=== PATIENT | female | born 1990 | race Asian ===

== ENCOUNTER → 2022-05-26 | Outpatient (CLI) | payer OTHER ==
[2022-05-26 18:10] LABS: Source, Urine Voided
[2022-05-26 19:32] LABS: BASOPHILS ABSOLUTE AUTO 0.08 K/mm3 (0.00-0.23); BASOPHILS PERCENT AUTO 1 % (0-2); EOSINOPHILS ABSOLUTE AUTO 0.29 K/mm3 (0.00-0.68); EOSINOPHILS PERCENT AUTO 3 % (0-6); Hematocrit 39.1 % (33.0-51.0); IMMATURE GRAN ABSOLUTE AUTO 0.03 K/mm3 (0.00-0.10); IMMATURE GRAN PERCENT AUTO 0 % (0-1); LYMPHOCYTES ABSOLUTE AUTO 2.69 K/mm3 (0.84-5.20); LYMPHOCYTES PERCENT AUTO 25 % (21-46); MONOCYTES ABSOLUTE AUTO 0.86 K/mm3 (0.16-1.47); MONOCYTES PERCENT AUTO 8 % (4-13); Mean Corpuscular HGB 30.7 pg (26.0-34.0); Mean Corpuscular HGB Conc 35.8 g/dL (31.5-36.5); Mean Corpuscular Volume 86 fL (80-100); Mean Platelet Volume 10.1 fL (9.1-12.4); NEUTROPHILS ABSOLUTE AUTO 7.05 K/mm3 (1.96-9.15); NEUTROPHILS PERCENT AUTO 64 % (41-73); Platelet Count 351 K/mm3 (150-400); RDW Coefficient Variation 12.1 % (11.7-14.2); RDW Standard Deviation 38.2 fL (35.1-46.3); Red Blood Cell Count 4.56 M/mm3 (3.80-5.20)
[2022-05-26 19:34] LABS: Appearance, Urine Clear (Clear); Bilirubin, Urine Neg (Neg); Blood, Urine Neg (Neg); Glucose Qualitative, Urine Neg (Neg); Ketones, Urine Neg (Neg); Leukocyte Esterase, Urine 1+ (Neg); Nitrite, Urine Neg (Neg); Protein, Urine Neg (Neg); Urobilinogen, Urine NORM (Normal)
[2022-05-26 19:46] LABS: Color, Urine Pale Yellow (P-Yellow)
[2022-05-26 19:47] LABS: Bacteria Mod /hpf; Red Blood Cells, Urine 0-2 /hpf (0-2); Squamous Epithelial Cells Few /hpf (Few)
[2022-05-28 07:09] LABS: HBSAG SCREEN Negative (Negative); HIV AB/P24 AG SCREEN Non Reactive (Non Reactive)
== END | disposition home or self-care (01) ==
LOC: LAB SHORT 15:55
PROVIDERS: Registered Nurse Community Health
DX: Z34.91 Encounter for supervision of normal pregnancy, unspecified, first trimester (principal)
CPT/HCPCS: 80055; 81001; 84443; 87086; 87389

== ENCOUNTER → 2022-06-08 | Outpatient (CLI) | payer OTHER ==
[2022-06-10 00:07] LABS: CHLAMYDIA TRACHOMATIS, NAA Negative (Negative)
== END | disposition home or self-care (01) ==
LOC: LAB SHORT 12:59
PROVIDERS: Registered Nurse Community Health
DX: Z34.91 Encounter for supervision of normal pregnancy, unspecified, first trimester (principal)
CPT/HCPCS: 87491; 87591

== ENCOUNTER → 2022-09-07 | Outpatient (CLI) | payer OTHER ==
[2022-09-07 20:53] LABS: Amylase, Blood 89 U/L (25-115)
== END | disposition home or self-care (01) ==
LOC: LAB 16:40 → LAB SHORT 16:40
PROVIDERS: Registered Nurse Community Health
DX: R10.11 Right upper quadrant pain (principal)
CPT/HCPCS: 82150; 83690

== ENCOUNTER → 2022-10-07 | Outpatient (CLI) | payer OTHER ==
[2022-10-08 12:58] LABS: Hematocrit 35.3 % (33.0-51.0); Hemoglobin 11.7 g/dL (11.5-16.0)
== END | disposition home or self-care (01) ==
LOC: LAB SHORT 12:07
PROVIDERS: Registered Nurse Community Health
DX: Z34.03 Encounter for supervision of normal first pregnancy, third trimester (principal)
CPT/HCPCS: 82950; 85014; 85018

== ENCOUNTER → 2022-11-30 | Outpatient (CLI) | payer OTHER | END | disposition home or self-care (01) | LOC: LAB SHORT 15:20 → LAB 15:20 | DX: Z34.03 Encounter for supervision of normal first pregnancy, third trimester (principal) | CPT/HCPCS: 87081; 87150 ==

== ENCOUNTER 2022-12-20 18:54 | Inpatient (IN) | payer OTHER ==
[~2022-12-20] VITALS: Ht 149.9 cm; Wt 74.5 kg
[2022-12-20 19:06] VITALS: BP 122/71
[2022-12-20] MEDS ORDERED: PRENATAL TABLE1 EAC2 PO (19:46)
[2022-12-20 20:03] VITALS: BP 119/60
[2022-12-20 20:03] LABS: BASOPHILS ABSOLUTE AUTO 0.03 K/mm3 (0.00-0.23); BASOPHILS PERCENT AUTO 0 % (0-2); EOSINOPHILS ABSOLUTE AUTO 0.07 K/mm3 (0.00-0.68); EOSINOPHILS PERCENT AUTO 1 % (0-6); Hematocrit 37.3 % (33.0-51.0); Hemoglobin 13.6 g/dL (11.5-16.0); IMMATURE GRAN ABSOLUTE AUTO 0.09 K/mm3 (0.00-0.10); IMMATURE GRAN PERCENT AUTO 1 % (0-1); LYMPHOCYTES PERCENT AUTO 15 % (21-46); MONOCYTES ABSOLUTE AUTO 0.89 K/mm3 (0.16-1.47); MONOCYTES PERCENT AUTO 9 % (4-13); Mean Corpuscular HGB 31.6 pg (26.0-34.0); Mean Corpuscular HGB Conc 36.5 g/dL (31.5-36.5); Mean Corpuscular Volume 87 fL (80-100); Mean Platelet Volume 10.4 fL (9.1-12.4); NEUTROPHILS ABSOLUTE AUTO 7.48 K/mm3 (1.96-9.15); NEUTROPHILS PERCENT AUTO 74 % (41-73); Platelet Count 278 K/mm3 (150-400); RDW Coefficient Variation 12.8 % (11.7-14.2); RDW Standard Deviation 39.9 fL (35.1-46.3); Red Blood Cell Count 4.31 M/mm3 (3.80-5.20); White Blood Cell Count 10.06 K/mm3 (4.00-11.30)
[2022-12-20 20:08] LABS: Albumin, Blood 2.6 g/dL (3.4-5.0); Albumin/Globulin Ratio 0.7 (0.8-1.8); Bilirubin, Total 0.2 mg/dL (0.1-1.0); Bun/Creatinine Ratio 21.4 (12.0-20.0); Calcium, Blood 8.9 mg/dL (8.5-10.1); Creatinine, Blood 0.56 mg/dL (0.40-1.00); Globulin, Blood 3.8 g/dL (2.2-4.0); Potassium, Blood 3.9 mmol/L (3.5-5.5); Total Protein, Blood 6.4 g/dL (6.4-8.2)
[2022-12-20 20:19] VITALS: BP 110/59
[2022-12-20 20:34] VITALS: BP 111/61
[2022-12-20 20:51] VITALS: BP 108/55
[2022-12-20 22:13] LABS: Creatinine, Urine Random 69.3 mg/dL (27.00-270.00); Protein, Urine Random 49.3 mg/dL (0.0-11.9); Protein/Creat Ratio, Ur Random 0.7
[2022-12-21] VITALS (47 sets, daily range): BP systolic 90–136; BP diastolic 43–74
--- NOTE | 2022-12-21 00:52 | NUR ---
DISCUSSED IGNITION SOURCES WITH PATIENT AND SPOUSE. BOTH DENY HAVING LIGHTERS, CIGARETTES, OR VAPE PENS. BOTH ARE AWARE THAT THESE ARE NOT ALLOWED IN THE HOSPITAL.
--- NOTE | 2022-12-21 21:10 | NUR ---
12/21/222109 Angus Pradhan CORD BLOOD AND CORD ON ICE GIVEN TO BABY RN
[2022-12-21 21:16] LABS: PCO2 Cord - Arterial 52 mmHg (40-50); pH Cord - Arterial 7.25 (7.28-7.35)
[2022-12-21 21:19] LABS: PCO2 Cord - Venous 47.3 mmHg (40-50); PO2 Cord - Venous 15.2 mmHg (28-32); pH Umbilical Cord - Venous 7.29 (7.26-7.35)
[2022-12-22] VITALS (12 sets, daily range): BP systolic 92–128; BP diastolic 50–67
[2022-12-22 00:31] LABS: Source, Urine Foley catheter
[2022-12-22 00:38] LABS: Bilirubin, Urine Neg (Neg); Blood, Urine 5+ (Neg); Glucose Qualitative, Urine Neg (Neg); Ketones, Urine 3+ (Neg); Leukocyte Esterase, Urine 1+ (Neg); Nitrite, Urine Neg (Neg); Protein, Urine 2+ (Neg); Specific Gravity, Urine 1.015 (1.003-1.022); Urobilinogen, Urine NORM (Normal)
[2022-12-22 01:00] LABS: Appearance, Urine Hazy (Clear); Color, Urine Yellow (P-Yellow)
[2022-12-22 01:01] LABS: Bacteria Mod /hpf; Red Blood Cells, Urine 25-50 /hpf (0-2); Squamous Epithelial Cells Rare /hpf (Few); White Blood Cells, Urine 0-2 /hpf (0-5)
[2022-12-22 05:47] LABS: BASOPHILS ABSOLUTE AUTO 0.04 K/mm3 (0.00-0.23); BASOPHILS PERCENT AUTO 0 % (0-2); EOSINOPHILS ABSOLUTE AUTO 0.03 K/mm3 (0.00-0.68); EOSINOPHILS PERCENT AUTO 0 % (0-6); Hematocrit 26.8 % (33.0-51.0); Hemoglobin 9.6 g/dL (11.5-16.0); IMMATURE GRAN PERCENT AUTO 1 % (0-1); LYMPHOCYTES ABSOLUTE AUTO 1.68 K/mm3 (0.84-5.20); LYMPHOCYTES PERCENT AUTO 8 % (21-46); MONOCYTES ABSOLUTE AUTO 1.29 K/mm3 (0.16-1.47); MONOCYTES PERCENT AUTO 6 % (4-13); Mean Corpuscular HGB 30.9 pg (26.0-34.0); Mean Corpuscular HGB Conc 35.8 g/dL (31.5-36.5); Mean Corpuscular Volume 86 fL (80-100); Mean Platelet Volume 9.7 fL (9.1-12.4); NEUTROPHILS ABSOLUTE AUTO 17.31 K/mm3 (1.96-9.15); NEUTROPHILS PERCENT AUTO 85 % (41-73); Platelet Count 193 K/mm3 (150-400); RDW Coefficient Variation 12.9 % (11.7-14.2); RDW Standard Deviation 39.8 fL (35.1-46.3); Red Blood Cell Count 3.11 M/mm3 (3.80-5.20); White Blood Cell Count 20.45 K/mm3 (4.00-11.30)
[2022-12-22] MEDS ORDERED: IBUP800 PO (12:56)
[2022-12-23 04:12] VITALS: BP 132/68
[2022-12-23 07:25] VITALS: BP 106/51
[2022-12-23 11:53] VITALS: BP 129/59
[2022-12-23 16:03] VITALS: BP 122/56
--- NOTE | 2022-12-23 16:22 | NUR ---
PT LABIA STILL QUITE SWOLLEN, PT WORRIED TO REMOVE. KATIE COVARRUBIAS NOTIFIED AND WILL COME ASSESS AFTER SHE IS DONE AT THE OFFICE.
--- NOTE | 2022-12-23 18:00 | NUR ---
KATIE COVARRUBIAS AT BEDSIDE ASSESSING LABIA. PLAN TO KEEP FLORES IN TILL THE MORNING AND CONTINUE IBUPROFEN Q 8 HOURS.
[2022-12-23 19:25] VITALS: BP 130/75
[2022-12-23 23:46] VITALS: BP 126/66
[2022-12-24 03:36] VITALS: BP 123/62
[2022-12-24 07:23] VITALS: BP 128/62
[2022-12-24 11:12] VITALS: BP 116/60
[2022-12-24 19:46] VITALS: BP 123/59
--- NOTE | 2022-12-24 22:32 | NUR ---
Pt sitting in bed. Had questions about [facility]. Notified nurse. No addditional needs at this time.
[2022-12-24 23:59] VITALS: BP 122/68
[2022-12-25 04:01] VITALS: BP 118/58
--- NOTE | 2022-12-25 08:05 | NUR ---
talked to bill ruiz on phone, ok to try to remove nino cath if swelling is better, to try to re tape laura dressing, no making a seal
[2022-12-25 08:40] VITALS: BP 120/72
--- NOTE | 2022-12-25 09:36 | NUR ---
pt and so verbalized [facility] smoking [facility], no cig, vap pen or thc smoking in room.
--- NOTE | 2022-12-25 10:50 | NUR ---
PT UP TO BATHROOM VOID 450CC URINE, IN HAT, REPORTS NOT PROBLEMS VOIDING, NO PAIN VOIDING
[2022-12-25 12:04] VITALS: BP 132/64
--- NOTE | 2022-12-25 14:20 | NUR ---
GETTING READY TO DC HOME WITH BABY, DC INSTRUCTIONS GONE OVER WITH PT AND , DENIES ANY QUESTIONS, ENCOURAGED TO CALL IF HAS ANY, IS TAKING STUFF OUT TO CAR
[2022-12-25 14:25] VITALS: BP 131/68
== END 2022-12-25 15:00 | disposition home or self-care (01) | DRG 788 ==
LOC: OBS 18:54 → BC 18:57 → OBS 19:05 → BC 19:07
PROVIDERS: Family Medicine; ADMIT Registered Nurse Community Health
PROC: 3E0P7VZ Introduction of Hormone into Female Reproductive, Via Natural or Artificial Opening (ICD-10-PCS; 2022-12-21)
PROC: 10D00Z1 Extraction of Products of Conception, Low, Open Approach (ICD-10-PCS; principal; 2022-12-21 19:45)
DX: O65.9 Obstructed labor due to maternal pelvic abnormality, unspecified (principal); Z37.0 Single live birth; O62.1 Secondary uterine inertia; Z3A.38 38 weeks gestation of pregnancy; Z87.440 Personal history of urinary (tract) infections
CPT/HCPCS: 36415; 51702; 80053; 81001; 82570; 82803; 84156; 85025; 86850; 86900; 86901; 86923; 87086; A9270; J0456; J1100; J1200; J1885; J2001; J2210; J2371; J2405; J2590; J2765; J3010; J7050; J7120

== ENCOUNTER 2023-07-08 09:02 | Day surgery (SDC) | payer OTHER ==
[~2023-07-08] VITALS: Ht 149.9 cm; Wt 57.6 kg
[~2023-07-08 09:02] MED LIST: IBUP800 PO; PRENATAL TABLE1 EAC2 PO
--- NOTE | 2023-07-08 13:13 | NUR ---
07/08/23 1313 JAS BENJAMIN STATES NO PAIN BUT CRAMPY. DENIES NAUSEA. STOMACH FELLS FUNNY.
--- NOTE | 2023-07-08 13:30 | NUR ---
07/08/23 1330 JAS BENJAMIN PT CONTINUES TO DENY PAIN. STATES STOMACH IS CRAMPY/GASSY FEELING BUT NO PAIN. DENIES NAUSEA. EATING AND DRINKING W/O DIFF
[2023-07-08 14:09] VITALS: BP 113/75
== END 2023-07-08 14:37 | disposition home or self-care (01) ==
LOC: ORSCSDS 09:02
PROVIDERS: Surgery
PROC: 0FT44ZZ Resection of Gallbladder, Percutaneous Endoscopic Approach (ICD-10-PCS; principal; 2023-07-08 10:00)
PROC: BF031ZZ Plain Radiography of Gallbladder and Bile Ducts using Low Osmolar Contrast (ICD-10-PCS; principal; 2023-07-08 10:00)
DX: K80.10 Calculus of gallbladder with chronic cholecystitis without obstruction (principal)
CPT/HCPCS: 74300; 88304; A9270; C1729; J0694; J1100; J1170; J2250; J2405; J2704; J2795; J3010; J7120

== ENCOUNTER 2024-01-10 14:55 | Emergency (ER) | payer BC, OTHER ==
[~2024-01-10] VITALS: Ht 149.9 cm; Wt 63.0 kg
[2024-01-10 15:47] LABS: BASOPHILS ABSOLUTE AUTO 0.07 K/mm3 (0.00-0.23); BASOPHILS PERCENT AUTO 1 % (0-2); EOSINOPHILS PERCENT AUTO 2 % (0-6); Hematocrit 41.6 % (33.0-51.0); Hemoglobin 14.7 g/dL (11.5-16.0); IMMATURE GRAN ABSOLUTE AUTO 0.03 K/mm3 (0.00-0.10); IMMATURE GRAN PERCENT AUTO 0 % (0-1); LYMPHOCYTES PERCENT AUTO 27 % (21-46); MONOCYTES ABSOLUTE AUTO 0.93 K/mm3 (0.16-1.47); MONOCYTES PERCENT AUTO 10 % (4-13); Mean Corpuscular HGB 29.1 pg (26.0-34.0); Mean Corpuscular HGB Conc 35.3 g/dL (31.5-36.5); Mean Corpuscular Volume 82 fL (80-100); Mean Platelet Volume 9.2 fL (9.1-12.4); NEUTROPHILS ABSOLUTE AUTO 5.95 K/mm3 (1.96-9.15); NEUTROPHILS PERCENT AUTO 61 % (41-73); Platelet Count 397 K/mm3 (150-400); RDW Coefficient Variation 11.9 % (11.7-14.2); RDW Standard Deviation 35.3 fL (35.1-46.3); Red Blood Cell Count 5.06 M/mm3 (3.80-5.20); White Blood Cell Count 9.78 K/mm3 (4.00-11.30)
[2024-01-10 16:04] LABS: Albumin, Blood 4.1 g/dL (3.4-5.0); Bilirubin, Total 0.4 mg/dL (0.1-1.0); Bun/Creatinine Ratio 13.4 (12.0-20.0); Calcium, Blood 9.9 mg/dL (8.5-10.1); Creatinine, Blood 0.67 mg/dL (0.40-1.00); Total Protein, Blood 8.1 g/dL (6.4-8.2)
[2024-01-10 17:14] LABS: Source, Urine Clean Catch
[2024-01-10 17:23] LABS: Appearance, Urine Hazy (Clear); Bilirubin, Urine Neg (Neg); Blood, Urine 1+ (Neg); Glucose Qualitative, Urine Neg (Neg); Ketones, Urine Neg (Neg); Leukocyte Esterase, Urine 3+ (Neg); Nitrite, Urine Neg (Neg); Protein, Urine Neg (Neg); Specific Gravity, Urine 1.005 (1.003-1.022); Urobilinogen, Urine NORM (Normal); pH, Urine 6.5 (5.0-8.0)
[2024-01-10 17:45] VITALS: BP 112/61
[2024-01-10 18:08] LABS: Color, Urine Pale Yellow (P-Yellow)
[2024-01-10 18:14] LABS: Bacteria Mod /hpf; Red Blood Cells, Urine 0-2 /hpf (0-2); Squamous Epithelial Cells Few /hpf (Few)
== END 2024-01-10 19:15 | disposition home or self-care (01) ==
LOC: ER 14:55
PROVIDERS: Student in an Organized Health Care Education/Training Program
DX: R10.9 Unspecified abdominal pain (principal); Z91.013 Allergy to seafood; Z91.048 Other nonmedicinal substance allergy status
CPT/HCPCS: 74177; 80053; 81001; 83690; 85025; 87086; 99284-25; Q9967

== ENCOUNTER → 2024-03-19 | Outpatient (CLI) | payer OTHER | LOC: LAB SHORT 11:35 → LAB 11:35 | DX: N89.8 Other specified noninflammatory disorders of vagina (principal) | CPT/HCPCS: 87070; 87205 ==